=== PATIENT | female | born 1960 | race Asian ===

== ENCOUNTER 2021-12-24 10:20 | Outpatient (REF) | payer BC, SELFPAY ==
--- NOTE | ~2021-12-24 | MR_ITS ---
EXAMINATION: MR BRAIN WITHOUT CONTRAST CLINICAL INFORMATION: Frontotemporal lobar degeneration. COMPARISON: None available. TECHNIQUE: Multiplanar, multisequence imaging of the brain was performed without intravenous contrast. FINDINGS: There is no acute infarction, hemorrhage, mass, or extra-axial fluid collection. Moderate to severe T2/FLAIR hyperintensity is seen throughout the cerebral white matter and sebastián. Innumerable microhemorrhages are seen with a central predominance involving the deep ward nuclei also seen in the bilateral cerebral and cerebellar hemispheres. Chronic lacunar infarcts are seen throughout the bilateral basal ganglia and thalami. There is some asymmetric right midbrain and pontine volume loss. Diffuse brain parenchymal volume loss is also noted but without a definite lobar predominant pattern. The major arterial flow voids are preserved at the skull base. The extracranial structures are within normal limits allowing for mild paranasal sinus mucosal thickening. MR/MR head/brain wo con IMPRESSION: No acute intracranial abnormality identified. Moderate to severe T2/FLAIR hyperintensity throughout the cerebral white matter and sebastián with chronic lacunar infarcts in the bilateral basal ganglia and thalami. Innumerable microhemorrhages with a central predominance involving the deep ward nuclei and cerebral and cerebellar hemispheres. The imaging findings are most suggestive of chronic hypertensive arteriopathy. Diffuse brain parenchymal volume loss without a definite subjective impression of a lobar predominant pattern of atrophy.
== END 2021-12-24 10:21 | disposition home or self-care (01) ==
LOC: HO.MRI 10:20
PROVIDERS: Visit Provider Psychiatry & Neurology Neurology
DX: G31.09 Other frontotemporal neurocognitive disorder (principal)
CPT/HCPCS: 70551

== ENCOUNTER 2024-11-06 12:40 | Outpatient (AMB) | payer BC, MEDICARE, SELFPAY ==
--- NOTE | 2024-11-06 12:52 | MHC.OFFVIS ---
Intake Visit Reasons: 4M VASCULAR DEMENTIA Accompanied by: Spouse Allergies No Known Allergies Allergy (Verified 11/06/24 12:59) Medication List - Last Reconciled 11/06/24 by Salma Sosa CNP amlodipine 5 mg PO DAILY aspirin (Adult Low Dose Aspirin) 81 mg PO DAILY atorvastatin 80 mg PO DAILY carvedilol 3.125 mg PO BID donepezil 10 mg PO DAILY losartan 25 mg PO DAILY memantine 10 mg PO BID olanzapine 5 mg PO DAILY HPI Comments Details: Progressive dementia. Speech was bit harder to understand. Very little speech initiation. No significant difficulty swallowing.?Needs help with everything. Able to feed herself most of the time if food is placed on utensil and put in her hand. Sleeps a lot and spends most of her time in bed. Has not been talking in sleep lately, previously was speaking in Wolof in her sleep. Still walking some at home. Balance progressively worse and tends to fall, no injuries. Mood and behavior was okay. She has noted that for 6 + years she has had a gradually progressive language problem and her sentence structure is broken down, she mixes words and has difficulty expressing herself and sometimes comprehending. She also has short-term memory problems. She has no problems with her vision or hearing no dizziness. She has a long history of poorly controlled hypertension all of her life and apparently had a stroke when she was in [place] over 15 years ago. The right side was affected but she made a good recovery. She has not been delusional and paranoid lately as she was for many years. Family history is not known. [facility] Social History (Updated 12/10/21 @ 09:17 by Mandy Paul [facility]) Alcohol intake: never Patient Tobacco Use Status: Never used Tobacco Review of Systems Const Denies chills, Denies daytime sleepiness, Denies difficulty sleeping, Reports fatigue, Denies fever(s), Denies frequent falls, Denies headache(s), Denies increased appetite, Denies poor appetite, Denies snoring, Denies weakness, Denies weight gain and Denies weight loss Eyes Denies loss of vision ENT Denies vertigo, Reports dizziness, Denies headache(s) and Denies neck pain Card Denies chest pain at rest, Denies chest pain with activity, Denies syncope, Denies leg edema, Denies palpitations, Denies dyspnea and Denies dyspnea on exertion Resp Denies cough, Denies dyspnea, Denies dyspnea on exertion and Denies snoring GI Denies abdominal pain, Denies constipation, Denies heartburn, Denies diarrhea and Denies nausea Denies urinary frequency, Denies difficulty voiding, Denies urinary incontinence and Denies urinary urgency Musc Reports abnormal gait (balance difficulty), Denies back pain, Denies myalgias, Denies arthralgias, Denies neck pain, Denies numbness and Denies tingling Neuro Reports abnormal gait (balance difficulty), Denies vertigo, Reports dizziness, Denies syncope, Denies frequent falls, Denies headache(s), Denies lack of coordination, Denies loss of vision, Reports memory loss, Denies numbness, Denies Other visual disturbances, Denies restless legs, Denies seizure-like activity, Denies tingling, Denies paresthesias, Denies tremor(s) and Denies weakness Psych Reports anxiety, Denies depression, Denies auditory hallucinations, Reports memory loss and Denies visual hallucinations Endo Reports fatigue and Denies palpitations Physical Exam Const Other: General Appearance:? normal, in no acute distress. Heart:? S1, S2 normal, no murmurs. Lungs:? clear anteriorly and posteriorly. Musculoskeletal:? normal. Extremities:? no edema. Psych:? alert, as below. Neuro Other: Abnormal Neurological Findings:?MMSE < 18, in wheelchair. She is able to tell me that she is here with her and that she feels good. She is unable to tell me her age. Mental Status: alert, as below. Cranial Nerves: Pupils are equal, round, and reactive to light. External ocular muscles are intact. Visual chatman are full, no ptosis. Face is symmetrical, no facial weakness or droop. Facial sensations are normal. Tongue protrudes in midline. Palate elevates symmetrically. Shoulder shrugging is normal Sensory Exam: ... Coordination: No ataxia. No titubation. Gait Exam: In wheelchair. Extrapyramidal System: No tremor, rigidity with normal facial expressions. No bradykinesia. No bradyphrenia. Normal arm swing and posture. No propulsion or retropulsion. Speech: Normal spontaneous speech, slightly thick. MMSE Level of Consciousness: Alert. Orientation: Knows state. Registration: Able to register 3 objects. Attention: Serial 7's unable. Recall: Able to recall 0 out of 3 objects. Language: Normal spontaneous speech, slightly thick. Able to repeat sentence. Repetition, naming, comprehension intact. Total Score: <18/30. Results Reviewed Results Reviewed: 01/19/22 EEG- WNL MRI brain: Moderate to severe T2/FLAIR hyperintensity throughout the cerebral white matter and sebastián with chronic lacunar infarcts in the bilateral basal ganglia and thalami. Innumerable microhemorrhages with a central predominance involving the deep ward nuclei and cerebral and cerebellar hemispheres. The imaging findings are most suggestive of chronic hypertensive arteriopathy. Diffuse brain parenchymal volume loss without a definite subjective impression of a lobar predominant pattern of atrophy. Assessment & Plan Assessment & Plan (1) Vascular dementia: Code(s): F01.50 - Vascular dementia, unspecified severity, without behavioral disturbance, psychotic disturbance, mood disturbance, and anxiety Category: Medical Qualifiers: Dementia severity: unspecified severity Dementia behavioral or psychological symptom: unspecified whether behavioral, psychotic, or mood disturbance or anxiety Qualified Code(s): F01.50 - Vascular dementia, unspecified severity, without behavioral disturbance, psychotic disturbance, mood disturbance, and anxiety Plan: Continue memantine 10mg 1 tablet twice a day. Continue donepezil 10mg 1 tablet at bedtime. (2) Frontotemporal lobar degeneration: Code(s): G31.09 - Other frontotemporal neurocognitive disorder; F02.80 - Dementia in other diseases classified elsewhere, unspecified severity, without behavioral disturbance, psychotic disturbance, mood disturbance, and anxiety Category: Medical (3) History of stroke: Code(s): Z86.73 - Personal history of transient ischemic attack (TIA), and cerebral infarction without residual deficits Category: Medical Plan . Coding Level of Care Code Est Pt Level 4 (39334) Diagnoses Vascular dementia, unspecified dementia severity, unspecified whether behavioral, psychotic, or mood disturbance or anxiety F01.50 Dementia severity: unspecified severity Dementia behavioral or psychological symptom: unspecified whether behavioral, psychotic, or mood disturbance or anxiety Frontotemporal lobar degeneration G31.09; F02.80 History of stroke Z86.73
--- OUTSIDE RECORDS SUMMARY | 2024-11-06 13:48 | XMS_ITS ---
Author Name [facility] [facility] Organization Unknown Encounters Encounter Type Encounter Reason Primary Diagnosis Location Date Ambulatory [facility]ly [facility] 12/06/2023 Care Team Organization Name Specialty Phone Email Start Date End Da te [facility] 06/02/2024 [facility] 08/25/2023 025 [facility] 02/15/2022 025
--- OUTSIDE RECORDS SUMMARY | 2024-11-06 13:48 | XMS_ITS | Clinical Summary ---
Author Organization [facility] Address [address] [facility] [address] [place] [address] Phone Care Team Providers Care Club Car Attendant Name Role Phone Angelita Mcdonnell MD Primary Care Provider [phone] Allergies Active Allergy Reactions Criticality Noted Date Comments Hydrochlorothiazide Other (see comments) 2020 Hydrochlorothiazide-Triamterene 02/08 Lisinopril Other (see comments) 11/14/2020 Medications atorvastatin (LIPITOR) 80 MG tablet Take 1 tablet by mouth 1 (one) time each day Active amLODIPine (NORVASC) 5 MG tablet Take 1 tablet by mouth Active aspirin (ST MARY) 81 MG EC tablet Take 81 mg by mouth 09/03/2020 Active OLANZapine (ZyPREXA) 5 MG tablet Take 1 tablet by mouth Active carvedilol (COREG) 3.125 MG tablet Take 3.125 mg by mouth in the morning and 3.125 mg in the evening. Take with meals. Active losartan (COZAAR) 25 MG tablet Take 1 tablet (25 mg total) by mouth 1 (one) time each day 90 tablet 3 05/04/2022 Active donepezil (ARICEPT) 10 MG tablet TAKE 1 TABLET BY MOUTH EVERY DAY AFTER A MEAL 04/20/2022 Active memantine (NAMENDA) 10 MG tablet TAKE 1 TABLET BY MOUTH EVERY DAY FOR 2 WEEKS THEN TAKE 1 TABLET BY MOUTH TWICE DAILY FOR 90 DAYS DIRECTED 04/26/2022 Active Active Problems Problem Noted Date Diagnosed Date Microalbuminuria 05/19/2021 History of cerebrovascular accident due to ische melissa 03/02/2021 Hypertension 12/16/2020 Thoracic aortic aneurysm without rupture 021 Resolved Problems Problem Noted Date Diagnosed Date Resolved Date Cerebral infarction 12/16/2020 05/15/19 22 Delusional disorder 12/16/2020 05/15/19 22 Immunizations Immunization Administration Dates Next Due SARS-CoV-2, Unspecified 01/26/2021,07/21/2020, Social History Tobacco Use Types Packs/Day Years Used Date Smoking Tobacco: Never Smokeless Tobacco: Never Tobacco Cessation:Counseling Given: No Alcohol Use Standard Drinks/Week Comments Never 0 (1 standard drink = 0.6 oz pur e alcohol) Comments Unknown Sex and Gender Information Value Date Recorded Sex Assigned at Not on file Legal Sex Female 12:44 PM EDT Gender Identity Not on file Sexual Orientation Not on file Last Filed Vital Signs Vital Sign Reading Time Taken Comments Blood Pressure 142/75 06/16/2022 4:03 PM EDT Pulse 61 06/16/2022 4:03 PM EDT Temperature - - Respiratory Rate - - Oxygen Saturation 98% 12/23/2020 2:57 PM EST Inhaled Oxygen Concentration - - Weight 59 kg (130 lb) 06/16/2022 4:03 PM EDT Height - - Body Mass Index - - Plan of Treatment Health Maintenance Due Date Last Done Comments Breast Cancer Screening 1960 Pneumococcal Vaccine: 50+ Ye ars (1 of 2 - PCV) 1977 Colorectal Cancer Screening: Annual FOBT 12/13/2007 Colorectal Cancer Screening: Colonoscopy 12/13/2007 Colorectal Cancer Screening: Sigmoidoscopy 12/13/2007 Influenza Vaccine (#1) 2024 Hepatitis B Vaccine Aged Out No longe r eligible based on patient's age to complete this topic Insurance [facility] Care Teams Club Car Attendant Relationship Specialty Start Date End Date Angelita Mcdonnell MD [address] [place] [address] PCP - General Internal Medicine 11/04/20
--- OUTSIDE RECORDS SUMMARY | 2024-11-06 13:48 | XMS_ITS | Encounter Summary ---
Author Organization [facility] Address [address] [place] [address] Phone Care Team Providers Care Geological Technical Officer Name Role Phone Angelita Mcdonnell MD Primary Care Provider [phone] Encounter Details Date Type Department Care Team (Late st Contact Info) Description 03/03/2021 Documentation Only [facility] [address] [facility] [address] [place] [address] Jadon Waggoner, [address] [address] Social History Tobacco Use Types Packs/Day Years Used Date Smoking Tobacco: Never Smokeless Tobacco: Never Alcohol Use Standard Drinks/Week Comments Never 0 (1 standard drink = 0.6 oz pur e alcohol) Comments Unknown Sex and Gender Information Value Date Recorded Sex Assigned at Not on file Legal Sex Female 12:44 PM EDT Gender Identity Not on file Sexual Orientation Not on file COVID-19 Exposure Response Date Recorded In the last month, have you been in contact with someone who was confirmed or suspected to have Coronavirus / COVID-19? No / Unsure 03/02/2021 9:26 AM EST documented as of this encounter Plan of Treatment Not on file documented as of this encounter Visit Diagnoses Not on filedocumented in this encounter Care Teams Geological Technical Officer Relationship Specialty Start Date End Date Angelita Mcdonnell MD [address] [place] [address] PCP - General Internal Medicine 11/04/20 documented as of this encounter
--- OUTSIDE RECORDS SUMMARY | 2024-11-06 13:48 | XMS_ITS | Patient Health Record ---
Author Organization [facility] Address [address] [place] [address] Care Team Providers Care Advanced Practice Registered Nurse Name Role Phone KIRSTEN MCKOY Primary Care Provider ChloeMelvin brown Unavailable [phone] Allergies Allergen (clinical drug ingredient) Drug/Non Drug Allergy documented on EMR Reaction Allergy Type Onset Date Status hydrochlorothiazide Hydrochlorothiazide rash Drug Aller gy Active lisinopril Lisinopril Unknown Drug Allergy Activ e Results Component Value Reference Range Notes CBC, Platelet, No Differenti [id number] Reviewed date:12/18/2023 08:46:40 AM Interpretation: Performing Lab:[facility], [address] [facility], Phone - [phone], Director - MDJodry Notes/Report: WBC 5.8 3.4-10.8 x10E3/uL RBC 3.91 3.77-5.28 x10E6/uL Hemoglobin 12.4 11.1-15.9 g/dL Hematocrit 38.9 34.0-46.6 % MCV 100 79-97 fL MCH 31.7 26.6-33.0 pg MCHC 31.9 31.5-35.7 g/dL RDW 13.3 11.7-15.4 % Platelets 192 150-450 x10E3/uL Albumin/Creatinine Ratio,Uri [id number] Reviewed date:12/18/2023 08:46:25 AM Interpretation: Performing Lab:[facility], [address] [facility], [place], Phone - [phone], Director - MDJodry Notes/Report: Creatinine, Urine 159.0 Not Estab. mg/dL Albumin, Urine 15.8 Not Estab. ug/mL Alb/Creat Ratio 10 0-29 mg/g creat Normal: 0 - 29 Moderately increased: 30 - 300 Severely increased: >300 Lipid Panel-[id number] Reviewed date:12/18/2023 08:46:33 AM Interpretation: Performing Lab:[facility] [place], [address] [facility], [place], Phone - [phone], Director - guillermo Notes/Report: Cholesterol, Total 120 100-199 mg/dL Triglycerides 53 0-149 mg/dL HDL Cholesterol 56 >39 mg/dL VLDL Cholesterol Navin 12 5-40 mg/dL LDL Chol Calc ([facility]) 52 0-99 mg/dL Comp. Metabolic Panel (14)-3 Reviewed date:12/17/2023 08:10:47 PM Interpretation: Performing Lab:[facility] [place], [address] [facility], [place], Phone - [phone], Director - Sarita Notes/Report: Glucose 93 70-99 mg/dL BUN 21 8-27 mg/dL Creatinine 1.18 0.57-1.00 mg/dL eGFR 51 >59 mL/min/1.73 BUN/Creatinine Ratio 18 12-28 Sodium 149 134-144 mmol/L Potassium 4.3 3.5-5.2 mmol/L Chloride 112 96-106 mmol/L Carbon Dioxide, Total 19 20-29 mmol/L Calcium 9.3 8.7-10.3 mg/dL Protein, Total 7.2 6.0-8.5 g/dL Albumin 4.1 3.9-4.9 g/dL Globulin, Total 3.1 1.5-4.5 g/dL Bilirubin, Total 0.6 0.0-1.2 mg/dL Alkaline Phosphatase 107 44-121 IU/L AST (SGOT) 17 0-40 IU/L ALT (SGPT) 15 0-32 IU/L Reason For Referral No Information Medications Medication SIG (Take, Route, Frequency, Duration) Notes Start Date End Date Status Carvedilol 3.125 MG TAKE 1 TABLET BY MOUTH TWICE DAILY WITH FOOD; Duration: 90 Active amLODIPine Besylate 5 MG TAKE 1 TABLET BY MOUTH EVERY DAY; Duration: 90 days Active Losartan Potassium 25 MG 1 tablet Orally Once a day; Duration: 90 days Active OLANZapine 5 MG TAKE 1 TABLET BY MOUTH ONCE DAILY; Duration: 30 Active Vitamin B12 500 mg three times a week Active Donezepil HCl-10 mg Active Atorvastatin Calcium 80 MG TAKE 1 TABLET BY MOUTH DAILY; Duration: 90 Active Memantine HCl 10 MG 1 tablet Orally twice Active Aspirin 81 MG 1 tablet Orally Once a day Active Immunizations Vaccine Route Administration Date Status Comme nts COVID Unknown 06/23/2020 Administered Moderna COVID Unknown 07/21/2020 Administered Moderna COVID Unknown 01/26/2021 Administered booster Social History Tobacco Use: Social History Observation Description Date Details (start date - stop date) Never Smoker NA - NA Tobacco Use/Smoking Question Answer Notes Are you a nonsmoker Alcohol Screen (Audit-C) Question Answer Notes Did you have a drink containing alcohol in the p ast year? No Points 0 Interpretation Negative Problems Problem Type SNOMED Code ICD Code Onset Dates Problem Status W/U Status Risk Notes Problem Dementia (83315652) Dementia in other diseases classified elsewhere without behavioral disturbance (F02.80) Active confirmed Problem Dementia (31922606) Unspecified dementia without behavioral disturbance (F03.90) Active confirmed Problem Delusional disorder (80625419) Delusional disorders (F22) Active confirmed Problem Cerebral infarction (565902880) Cerebral infarction, unspecified (I63.9) Active confirmed Problem Thoracic aortic aneurysm without rupture (80728991) Thoracic aortic aneurysm, without rupture (I71.2) Active confirmed Problem Essential hypertension (09489135) Essential (primary) hypertension (I10) Active confirmed Problem Amnesia (48952186) Complaints of memory disturbance (R41.3) Active confirmed Problem 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) Active confirmed Vital Signs Heart Rate 64 /min 12/28/2023 Temperature 96.5 degrees Fahrenheit 12/28/2023 Oximetry 94 % 12/28/2023 Blood pressure diastolic 70 mm Hg 12/28/2023 Height 62 in 12/28/2023 Blood pressure systolic 108 mm Hg 12/28/2023 Weight 139.1 lbs 12/28/2023 BMI 25.44 kg/m2 12/28/2023 Encounters Encounter Location Date Provider Diagnosis [address] [address] 12/28/2023 Arobryant Alastephanie Essential (primary) hypertension I10 ; Cerebral infarction, unspecified I63.9 ; Other frontotemporal neurocognitive disorder G31.09 and Encounter for general adult medical examination without abnormal findings Z00.00 [facility] [address] [place] [address] 03/27/2024 Melvin Slois Assessments Encounter Date Diagnosis (ICD Code) Assessment Notes Treatment Notes Treatment Clinical Notes Section Notes 12/28/2023 Cerebral infarction, unspecified (ICD-10 - I63.9) Mrs. Fleming is a 63 year old lady with history of hypertension, history of CVA, delusional disorder, history of medication nonadherence and thoracic aortic aneurysm here today for annual wellness visit Hypertension. Blood pressure well controlled on current regimen.No new changes we have discussed lab work including comprehensive panel which showed creatinine of 1.1 her baseline is 1.0, albumin creatinine ratio done in December 2023 which is within normal limits. EKG was done today I have reviewed it looks normal sinus rhythm with 61 bpm QTc interval is [address] changes nonspecific T wave changes in the lateral leads. No AV block Dementia. She sees Dr. Hall who recently started her on Memantine and Donepezil for frontotemporal degeneration. Cerebral infarction. She is on right medications. patient is mostly wheelchair bound per her she requires a lot of help with dressing up bathing and toileting Thoracic aortic aneurysm. She has 4.5 cm ascending thoracic aortic aneurysm and She is stable at this point and sees Dr. Contreras.not interested in any kind of surgery General health concerns discussed with patient. preventive care, mammograms and colonoscopy and other preventive care was discussed with the patient's he states is very difficult for patient to go for the testing and he wants to keep doctor's visits to minimum advanced CARE planning, discussed about Molst , currently she is of her cold is the healthcare proxy, we discussed about CODE STATUS he will think and let us know 12/28/2023 Essential (primary) hypertension (ICD-10 - I10) Mrs. Fleming is a 63 year old lady with history of hypertension, history of CVA, delusional disorder, history of medication nonadherence and thoracic aortic aneurysm here today for annual wellness visit Hypertension. Blood pressure well controlled on current regimen.No new changes we have discussed lab work including comprehensive panel which showed creatinine of 1.1 her baseline is 1.0, albumin creatinine ratio done in December 2023 which is within normal limits. EKG was done today I have reviewed it looks normal sinus rhythm with 61 bpm QTc interval is [address] changes nonspecific T wave changes in the lateral leads. No AV block Dementia. She sees Dr. Hall who recently started her on Memantine and Donepezil for frontotemporal degeneration. Cerebral infarction. She is on right medications. patient is mostly wheelchair bound per her she requires a lot of help with dressing up bathing and toileting Thoracic aortic aneurysm. She has 4.5 cm ascending thoracic aortic aneurysm and She is stable at this point and sees Dr. Contreras.not interested in any kind of surgery General health concerns discussed with patient. preventive care, mammograms and colonoscopy and other preventive care was discussed with the patient's he states is very difficult for patient to go for the testing and he wants to keep doctor's visits to minimum advanced CARE planning, discussed about Molst , currently she is of her cold is the healthcare proxy, we discussed about CODE STATUS he will think and let us know 12/28/2023 Other frontotemporal neurocognitive disorder (ICD-10 - G31.09) Mrs. Fleming is a 63 year old lady with history of hypertension, history of CVA, delusional disorder, history of medication nonadherence and thoracic aortic aneurysm here today for annual wellness visit Hypertension. Blood pressure well controlled on current regimen.No new changes we have discussed lab work including comprehensive panel which showed creatinine of 1.1 her baseline is 1.0, albumin creatinine ratio done in December 2023 which is within normal limits. EKG was done today I have reviewed it looks normal sinus rhythm with 61 bpm QTc interval is [address] changes nonspecific T wave changes in the lateral leads. No AV block Dementia. She sees Dr. Hall who recently started her on Memantine and Donepezil for frontotemporal degeneration. Cerebral infarction. She is on right medications. patient is mostly wheelchair bound per her she requires a lot of help with dressing up bathing and toileting Thoracic aortic aneurysm. She has 4.5 cm ascending thoracic aortic aneurysm and She is stable at this point and sees Dr. Contreras.not interested in any kind of surgery General health concerns discussed with patient. preventive care, mammograms and colonoscopy and other preventive care was discussed with the patient's he states is very difficult for patient to go for the testing and he wants to keep doctor's visits to minimum advanced CARE planning, discussed about Molst , currently she is of her cold is the healthcare proxy, we discussed about CODE STATUS he will think and let us know 12/28/2023 Encounter for general adult medical examination without abnormal findings (ICD-10 - Z00.00) Mrs. Fleming is a 63 year old lady with history of hypertension, history of CVA, delusional disorder, history of medication nonadherence and thoracic aortic aneurysm here today for annual wellness visit Hypertension. Blood pressure well controlled on current regimen.No new changes we have discussed lab work including comprehensive panel which showed creatinine of 1.1 her baseline is 1.0, albumin creatinine ratio done in December 2023 which is within normal limits. EKG was done today I have reviewed it looks normal sinus rhythm with 61 bpm QTc interval is [address] changes nonspecific T wave changes in the lateral leads. No AV block Dementia. She sees Dr. Hall who recently started her on Memantine and Donepezil for frontotemporal degeneration. Cerebral infarction. She is on right medications. patient is mostly wheelchair bound per her she requires a lot of help with dressing up bathing and toileting Thoracic aortic aneurysm. She has 4.5 cm ascending thoracic aortic aneurysm and She is stable at this point and sees Dr. Contreras.not interested in any kind of surgery General health concerns discussed with patient. preventive care, mammograms and colonoscopy and other preventive care was discussed with the patient's he states is very difficult for patient to go for the testing and he wants to keep doctor's visits to minimum advanced CARE planning, discussed about Molst , currently she is of her cold is the healthcare proxy, we discussed about CODE STATUS he will think and let us know Plan Of Treatment Pending Test Test Name Order Date Cologuard 12/23/2021 Future Test Test Name Order Date CBC (COMPLETE BLOOD COUNT) 06/22/2022 COMPREHENSIVE METABOLIC PANEL 06/22/2022 LIPID PANEL 06/22/2022 MICROALBUMIN, URINE 06/22/2022 CBC, Platelet, No Differential-[id number] Albumin/Creatinine Ratio,Urine-[id number] Lipid Panel-[id number] 06/27/2023 Comp. Metabolic Panel ([id number])-[id number] 2023 Insurance Providers Payer Name Payer Address Payer Phone Subscriber Number Group Number Insured Name Patient Relationship to Insured Coverage Start Date Coverage End Date Medicare [address] [place] [id number] [phone] [id number] Brooke Fleming Self - patient is the insured 4 [facility] [address] [place] [address] [phone] [id number] Brooke Fleming Self - patient is the insured Medical (General) History Medical History History ICD Code hypertension hyperlipidemia cerebral infraction Delusional disorder 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 Contreras
== END 2024-11-06 13:10 | disposition home or self-care (01) ==
LOC: HO.HSM 12:40
PROVIDERS: PCP Hospitalist; Referring Provider Hospitalist; Visit Provider Registered Nurse
DX: F01.50 Vascular dementia, unspecified severity, without behavioral disturbance, psychotic disturbance, mood disturbance, and anxiety (principal); G31.09 Other frontotemporal neurocognitive disorder; F02.80 Dementia in other diseases classified elsewhere, unspecified severity, without behavioral disturbance, psychotic disturbance, mood disturbance, and anxiety; Z86.73 Personal history of transient ischemic attack (TIA), and cerebral infarction without residual deficits
CPT/HCPCS: 99214